=== PATIENT | female | born 1930 | race African-American/Black ===

== ENCOUNTER 2016-10-02 06:00 | Inpatient (IN) ==
--- NOTE | 2016-10-01 18:14 | Internal Med History&Physical ---
Assessment and Plan (1) Diabetes Status: Chronic Current Visit: Yes Qualifiers: Diabetes mellitus type: type 2 Diabetes mellitus complication status: with skin complications Diabetes mellitus complication detail: with other skin ulcer Diabetes mellitus detention insulin use: with detention use Qualified Code(s): E11.622 - Type 2 diabetes mellitus with other skin ulcer; Z79.4 - halfway (current) use of insulin (2) Sacral decubitus ulcer Status: Chronic Current Visit: No Qualifiers: Pressure ulcer stage: unstageable Qualified Code(s): L89.150 - Pressure ulcer of sacral region, unstageable (3) History of stroke Status: Chronic Current Visit: No (4) Diabetic ulcer 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 Lux is a 86 year old female patient of [facility] with history of Stroke with upper extremity contractures, dementia, HTN, chronic constipation, recent sacral area decubitus ulceration with abscess, anemia of chronic illness, bed bound patient, B12 deficiency, Diabetes, who was seen in sn[facility] and acute RLE vascular wound was noted. She was sent to hospital for direct admission and for consulting Dr. Lares to evaluate leg wound for surgical debridement. Home Medications Medication Instructions Recorded Confirmed Type Acetaminophen [Acetaminophen ER 650 mg PO BID 05/08/16 10/02/16 History Tab] Bisacodyl Tab [Dulcolax Tab] 5 mg PO BEDTIME 05/08/16 10/02/16 History Calcium Carbonate/Vitamin D3 1 tablet PO BID 05/08/16 10/02/16 History [Calcium 600 + Vit D Tablet] Cyanocobalamin (Vitamin B-12) 1,000 mcg IJ Q30D 05/08/16 10/02/16 History [Cyanocobalamin Injection] Docusate Sodium Cap [Colace Cap] 100 mg PO BEDTIME 05/08/16 10/02/16 History Multivitamin with Iron 1 each PO 0900 05/08/16 10/02/16 History [Multivitamins with Iron] Omeprazole [Prilosec] 20 mg PO 0900 05/08/16 10/02/16 History Albuterol/Ipratropium Neb [Duoneb] 3 ml RESP TX RT Q6H #120 05/20/16 10/02/16 Rx nebulization solution Insulin Regular [HumuLIN R] See Protocol SUBCUT ACHS injection 05/20/16 Rx Lactulose 20 gm PO TID PRN #30 05/20/16 10/02/16 Rx Metoprolol Tartrate Tab [Lopressor 12.5 mg PO BID #60 tablet 05/20/16 10/02/16 Rx Tab] cloNIDine TAB [Catapres Tab] 0.1 mg PO BID #60 tablet 05/20/16 10/02/16 Rx Aspirin Chew Tab 81 mg PO 0900 09/18/16 10/02/16 History Tramadol HCl [Tramadol Tab] 50 mg PO DAILY PRN 09/18/16 10/02/16 History medroxyPROGESTERone TAB [Provera] 20 mg PO DAILY #30 tablet 09/18/16 10/02/16 Rx Allergies Allergy/AdvReac Type Severity Reaction Status Date / Time No Known Allergies Allergy Verified 05/07/16 19:59 Medical,Surgical,& Family Hx - Medical History Cardio: History of: Hypertension Neurology: History of: Cerebrovascular Accident HEENT: Comment Only: Eye Problem (cataracts) Endocrine: History of: Diabetes Mellitus (IDDM) Genitourinary: History of: Problems (urinary incontinence) Gastrointestinal: History of: GERD Musculoskeletal: History of: Musculoskeletal Problems (contractures upper limbs from stroke; bed bound patient) Hematology: History of: Anemia (chronic disease) Other: History of: Skin Problems (sacral decubitus ulceration and acute RLE vascular skin wound) - Surgical History Additional Surgical History: surgical decubitus ulceration debridement; sacral abscess I&D - Family History Family History: Reports;: Family Hypertension - Social History Smoking Status: Never smoker Frequency of Alcohol Use: None Type of Drug Use: None Marital Status: Lives With:: snf Functional capacity: bed bound ROS unobtainable: due to dementia, other (history obtained at snf; nursing reports) - Constitutional Constitutional: Absent: anorexia (good appetite at snf), excessive sweating, night sweats - Cardiovascular Cardiovascular: Absent: dyspnea - Respiratory Respiratory: Absent: cough - Gastrointestinal Gastrointestinal: Absent: diarrhea, vomiting - Musculoskeletal Musculoskeletal: Present: limited range of motion (bed bound patient with contractures) - Neurological Neurological: Present: other (dementia) Exam - Constitutional General appearance: no acute distress - Head Head exam: Present: normocephalic - Respiratory Respiratory exam: Present: clear to auscultation bilaterally. Absent: rhonchi, wheezes - Cardiovascular Cardiovascular exam: Present: regular rate and rhythm - GI/Abdominal GI/Abdominal exam: Present: normal bowel sounds, soft. Absent: tenderness - Extremities Exam Extremities exam: Absent: edema - Neurological Exam Neurological exam: Present: other (awake but has dementia) - Psychiatric Psychiatric exam: Present: normal mood - Skin Skin exam: Present: warm, dry, other (vascular skin wound lower extremity) Results - Labs CBC & BMP: 10/03/16 04:47 10/02/16 19:25
[~2016-10-02 06:00] MED LIST: ACETAMINOPHEN 325 MG TABLET PO PRN; DEXTROSE 50% 25 GM/50 ML VIAL IV PRN; GLUCAGON 1 MG VIAL IM PRN; MAGNESIUM HYDROXIDE SUSP 30 ML UDCUP PO PRN; ONDANSETRON 4 MG/2 ML VIAL IV PRN; traMADol 50 MG TABLET PO PRN
[2016-10-02] MEDS: DOCUSATE SODIUM 100 MG CAPSULE PO SCH ×3 (11:02→21:10)
[2016-10-02] MEDS: INSULIN REGULAR 100 UNIT/ML SUBCUT SCH ×4 (11:02→21:23)
[2016-10-02] MEDS: SODIUM CHLORIDE 0.45% 1,000 ML IV SCH ×2 (11:02→11:09)
[2016-10-02] MEDS: FAMOTIDINE 20 MG TABLET PO SCH ×3 (11:02→21:09)
[2016-10-02] MEDS: CLINDAMYCIN INJ 600 MG in PREMIX 1 EACH IV SCH ×3 (11:10→21:08)
[2016-10-02] MEDS: ENOXAPARIN 30 MG/0.3 ML SYRINGE SUBCUT SCH ×2 (11:38→17:58)
[2016-10-02] MEDS ORDERED: SKIN HEALING OINT (AQUAPHOR) 50 GM TUBE TOP PRN (14:57)
--- NOTE | 2016-10-02 15:06 | General Surgery Consult Note ---
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 This likely has a component of an atypical pressure associated ulcer as well, as noted by the opposing right and left leg body habitus. We will obtain cultures and begin with offloading, moisturizing the area heavily and using Santyl enzymatic debridement, and look at serially removing devitalized tissue. She may require formal OR debridement as well. Current Visit: Yes (2) Sacral decubitus ulcer Status: Acute Assessment and plan: 10/02/16 Large sacral decubitus ulcer. This appears clean and is granulating but with a modest biofilm present. We will start by Enzymatic debridement but she may require OR debridement of this area in order to remove the biofilm if it does not respond to conservative measures. Current Visit: No Qualifiers: Pressure ulcer stage: unstageable Qualified Code(s): L89.150 - Pressure ulcer of sacral region, unstageable History of Present Illness Chief complaint: 1. Right lower extremity wound; 2. Sacral decubitus ulcer History of present illness: Ms. Lux is a 86 year old female Home Medications Medication Instructions Recorded Confirmed Type Acetaminophen [Acetaminophen ER 650 mg PO BID 05/08/16 10/02/16 History Tab] Bisacodyl Tab [Dulcolax Tab] 5 mg PO BEDTIME 05/08/16 10/02/16 History Calcium Carbonate/Vitamin D3 1 tablet PO BID 05/08/16 10/02/16 History [Calcium 600 + Vit D Tablet] Cyanocobalamin (Vitamin B-12) 1,000 mcg IJ Q30D 05/08/16 10/02/16 History [Cyanocobalamin Injection] Docusate Sodium Cap [Colace Cap] 100 mg PO BEDTIME 05/08/16 10/02/16 History Multivitamin with Iron 1 each PO 00 05/08/16 10/02/16 History [Multivitamins with Iron] Omeprazole [Prilosec] 20 mg PO 0900 05/08/16 10/02/16 History Albuterol/Ipratropium Neb [Duoneb] 3 ml RESP TX RT Q6H #120 05/20/16 10/02/16 Rx nebulization solution Insulin Regular [HumuLIN R] See Protocol SUBCUT ACHS injection 05/20/16 Rx Lactulose 20 gm PO TID PRN #30 05/20/16 10/02/16 Rx Metoprolol Tartrate Tab [Lopressor 12.5 mg PO BID #60 tablet 05/20/16 10/02/16 Rx Tab] cloNIDine TAB [Catapres Tab] 0.1 mg PO BID #60 tablet 05/20/16 10/02/16 Rx Aspirin Chew Tab 81 mg PO 0900 09/18/16 10/02/16 History Tramadol HCl [Tramadol Tab] 50 mg PO DAILY PRN 09/18/16 10/02/16 History medroxyPROGESTERone TAB [Provera] 20 mg PO DAILY #30 tablet 09/18/16 10/02/16 Rx Allergies Allergy/AdvReac Type Severity Reaction Status Date / Time No Known Allergies Allergy Verified 05/07/16 19:59 Medical,Surgical,& Family Hx - Medical History Cardio: History of: Hypertension Neurology: History of: Cerebrovascular Accident HEENT: Comment Only: Eye Problem (cataracts) Renal: Comment Only: Renal Problems (Incontient) Gastrointestinal: History of: GERD Musculoskeletal: History of: Musculoskeletal Problems (contractures upper limbs from stroke; bed bound patient) Hematology: History of: Anemia (chronic disease) Other: History of: Skin Problems (acute sacral decubitus ulceration) - Social History Smoking Status: Unknown if ever smoked ROS unobtainable: due to dementia, other (See SNF record) Exam - Constitutional Vitals: Period Temp Pulse Resp BP Sys/Dugan Pulse Ox Last 24 Hr 99 F 98 17 149/81 99 General appearance: other (Pleasantly demented elderly female who is awake and looks around; she has incoherent speech but appears in no distress. ) - Head Head exam: Present: normocephalic - Neck Neck exam: Absent: lymphadenopathy, tenderness - Respiratory Respiratory exam: Present: rhonchi. Absent: wheezes - Cardiovascular Cardiovascular exam: Present: RRR - GI/Abdominal GI/Abdominal exam: Present: hypoactive bowel sounds - Extremities Exam Extremities exam: Present: other (Severe lower extremity contractures with muscle wasting bilaterally. On the right lower leg, there is an anteriormedial pretibial full thickness skin ulceration present with pale tissue at the base. I see no gross purulence. There is mild slough at the edges and centrally. Additionally, there is some necrotic tissue and soft eschar present at the superior and inferior wound edges, about 1-2cm at each site. Skin edges are not injected or erythematous. It is mildly tender to touch. Pulses are not definitely palpable but there are no gross ischemic changes present. The extremities are evenly colored and warm to touch. ) Quality Measures - VTE Contraindication to Mechanical VTE Prophylaxis: Vascular Ulceration
[2016-10-02] MEDS: COLLAGENASE OINT 30 GM TUBE TOP SCH (15:25)
[2016-10-02] MEDS: SODIUM HYPOCHLORITE 0.25% IRRIG 473 ML BOTTLE TOP SCH (18:39)
--- NOTE | 2016-10-02 18:44 | Internal Med Progress Note ---
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 Status: Acute Current Visit: Yes (3) Diabetes Status: Chronic Current Visit: Yes Qualifiers: Diabetes mellitus type: type 2 Diabetes mellitus complication status: with skin complications Diabetes mellitus complication detail: with other skin ulcer Diabetes mellitus software writer insulin use: with software writer use Qualified Code(s): E11.622 - Type 2 diabetes mellitus with other skin ulcer; Z79.4 - longterm (current) use of insulin (4) History of stroke Status: Chronic Current Visit: No (5) Sacral decubitus ulcer Status: Chronic Current Visit: No Qualifiers: Pressure ulcer stage: unstageable Qualified Code(s): L89.150 - Pressure ulcer of sacral region, unstageable Internal Medicine - PN: Subj Interval history: Ms. Lux is a 86 year old female patient of [facility] with history of Stroke with upper extremity contractures, dementia, HTN, chronic constipation, recent sacral area decubitus ulceration with abscess, anemia of chronic illness, bed bound patient, B12 deficiency, Diabetes, who was seen in [facility] and acute RLE vascular wound was noted. She was sent to hospital for direct admission and for consulting Dr. Lares to evaluate leg wound for surgical debridement. She is stable and wound care underway. Fluids started and she will need blood transfusion, which will help with hypotension. She will also need some albumin for 2-3 days. Will consult long line teamster for protein requirements. Exam (Progress Note) - Constitutional Vitals: Period Temp Pulse Resp BP Sys/Dugan Pulse Ox Last 24 Hr 99 F-99.2 F 98-101 17-18 100-149/57-81 99-100 Exam: - Constitutional General appearance: no acute distress - Respiratory Respiratory exam: Present: clear to auscultation bilaterally. Absent: rhonchi, wheezes - Cardiovascular Cardiovascular exam: Present: regular rate and rhythm - GI/Abdominal GI/Abdominal exam: Present: normal bowel sounds, soft. Absent: tenderness - Extremities Exam Extremities exam: Absent: edema - Neurological Exam Neurological exam: Present: alertness improved - Psychiatric Psychiatric exam: Present: normal mood - Skin Skin exam: Present: warm, dry, other (vascular skin wound lower extremity) Results - Labs CBC & BMP: 10/03/16 04:47 10/02/16 19:25 Quality Measures - VTE Contraindication to Mechanical VTE Prophylaxis: Vascular Ulceration
[2016-10-02] MEDS ORDERED: LACTULOSE 20 GM/30 ML UDCUP PO PRN (18:46)
[2016-10-02] MEDS ORDERED: traMADol 50 MG TABLET PO PRN (18:46)
[2016-10-02 19:40] LABS: Basophils % 0.2 % (0.0-0.8); Eosinophils # 0.1 10*3/uL (0.0-0.87); Eosinophils % 2.2 % (0.00-10.9); Hematocrit 20.3 VOL% (35.7-47.0); Immature Granulocytes % 0.5 %; Immature Granulocytes Absolute 0.03 #; Lymphocytes # 2.4 10*3/uL (1.4-4.0); Lymphocytes % 40.5 % (21.3-54.2); Mean Corpuscular HGB Conc 33.5 GM/DL (32-36); Mean Corpuscular Hemoglobin 29 PG (27-34); Mean Corpuscular Volume 85.7 FL (87-102); Mean Platelet Volume 9.8 FL (9.6-12.0); Monocytes # 0.7 10*3/uL (0.11-0.8); Monocytes % 12.4 % (1.7-12.7); Neutrophils # 2.6 10*3/uL (1.4-7.4); Neutrophils % 44.2 % (38.7-73.9); Platelet Count 319 T/CUMM (130-400); Red Blood Count 2.37 MC/CUMM (3.8-5.5); Red Cell Distribution Width 13.2 % (9.3-17.3); White Blood Count 5.8 T/CUMM (4-12)
[2016-10-02 19:44] LABS: Hemoglobin 6.8 GM/DL (12.0-16.0)
[2016-10-02 20:00] LABS: Alanine Aminotransferase 11 U/L (13-56); Albumin 1.9 G/DL (3.4-5.0); Alkaline Phosphatase 53 U/L (45-117); Aspartate Amino Transferase 17 U/L (0-37); Bilirubin,Total < 0.39 MG/DL (0.2-1.0); Blood Urea Nitrogen 8 MG/DL (7-18); Calcium 8.3 MG/DL (8.5-10.1); Glucose 104 MG/DL (74-106); Osmolality,Calculated 278.3 MOS/KG (273-304); Potassium 4.5 MMOL/L (3.5-5.1); Sodium 141 MMOL/L (136-145); Total Protein 6.2 G/DL (6.4-8.3)
[2016-10-02] MEDS: ACETAMINOPHEN 325 MG TABLET PO SCH (21:09)
[2016-10-02] MEDS: CALCIUM (CARBONATE)/VITAMIN D 600 MG-400 UNIT TABLET PO SCH (21:09)
[2016-10-02] MEDS: BISACODYL 5 MG TABLET PO SCH (21:10)
[2016-10-02] MEDS: METOPROLOL TARTRATE 25 MG TABLET PO SCH (21:27)
[2016-10-03] MEDS: SODIUM CHLORIDE 0.45% 1,000 ML IV SCH ×3 (01:32→20:47)
[2016-10-03 05:17] LABS: Basophils % 0.3 % (0.0-0.8); Eosinophils # 0.1 10*3/uL (0.0-0.87); Eosinophils % 2.4 % (0.00-10.9); Hematocrit 21.8 VOL% (35.7-47.0); Hemoglobin 7.2 GM/DL (12.0-16.0); Immature Granulocytes % 0.3 %; Immature Granulocytes Absolute 0.02 #; Lymphocytes # 2.9 10*3/uL (1.4-4.0); Lymphocytes % 49.3 % (21.3-54.2); Mean Corpuscular Hemoglobin 28 PG (27-34); Mean Corpuscular Volume 85.5 FL (87-102); Mean Platelet Volume 9.9 FL (9.6-12.0); Monocytes # 0.7 10*3/uL (0.11-0.8); Monocytes % 11.1 % (1.7-12.7); Neutrophils # 2.1 10*3/uL (1.4-7.4); Neutrophils % 36.6 % (38.7-73.9); Platelet Count 343 T/CUMM (130-400); Red Blood Count 2.55 MC/CUMM (3.8-5.5); Red Cell Distribution Width 13.4 % (9.3-17.3); White Blood Count 5.9 T/CUMM (4-12)
[2016-10-03 05:46] LABS: Eosinophils 4 % (0-10); Hypochromasia 1+; Lymphocytes 59 % (20-55); Platelet Estimate Normal; Segmented Neutrophils 33 % (50-85); Total Cells Counted 100
[2016-10-03] MEDS: CLINDAMYCIN INJ 600 MG in PREMIX 1 EACH IV SCH ×3 (06:21→20:57)
[2016-10-03] MEDS ORDERED: SODIUM CHLORIDE 0.9% 250 ML IV PRN (07:36)
[2016-10-03] MEDS ORDERED: medroxyPROGESTERone 5 MG TABLET PO SCH (09:00)
[2016-10-03] MEDS: ALBUMIN 25% 25 GM in PREMIX 1 EACH IV SCH ×2 (09:24→17:43)
[2016-10-03] MEDS: INSULIN REGULAR 100 UNIT/ML SUBCUT SCH ×4 (09:29→21:32)
[2016-10-03] MEDS: PANTOPRAZOLE 40 MG TABLET PO SCH (09:30)
[2016-10-03] MEDS: DOCUSATE SODIUM 100 MG CAPSULE PO SCH ×3 (09:30→21:02)
[2016-10-03] MEDS: METOPROLOL TARTRATE 25 MG TABLET PO SCH ×3 (09:31→21:05)
[2016-10-03] MEDS: CALCIUM (CARBONATE)/VITAMIN D 600 MG-400 UNIT TABLET PO SCH ×2 (09:31→21:00)
[2016-10-03] MEDS: MULTIVITAMIN (CENTRUM) TABLET PO SCH (09:31)
[2016-10-03] MEDS: ASPIRIN CHEW 81 MG TABLET PO SCH (09:32)
[2016-10-03] MEDS: FAMOTIDINE 20 MG TABLET PO SCH ×2 (09:33→21:00)
[2016-10-03] MEDS: ACETAMINOPHEN 325 MG TABLET PO SCH ×2 (09:34→22:12)
--- NOTE | 2016-10-03 11:29 | General Surgery Progress Note ---
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 This likely has a component of an atypical pressure associated ulcer as well, as noted by the opposing right and left leg body habitus. We will obtain cultures and begin with offloading, moisturizing the area heavily and using Santyl enzymatic debridement, and look at serially removing devitalized tissue. She may require formal OR debridement as well. 10/03/2016. Ulceration of the right lower leg is somewhat improved with just the Santyl and moisturizing. I believe the enzymatic debridement will likely handle her existing slough, as well as some consistent wound care. Will reassess this on Thursday and determine whether or not she would benefit from any more aggressive debridement, but at this time that does not look to be any advancing infection. Certainly any formal workup of her arterial status would not gain any useful information at this point. Current Visit: Yes (2) Sacral decubitus ulcer Status: Chronic Assessment and plan: 10/02/16 Large sacral decubitus ulcer. This appears clean and is granulating but with a modest biofilm present. We will start by Enzymatic debridement but she may require OR debridement of this area in order to remove the biofilm if it does not respond to conservative measures. 10/03/2016. Sacral decubitus looks to be cleaning up nicely with just Dakin's moist dressing. I think this just with a heavy biofilm, and does not appear to be anything that needs any kind of a large debridement. We will continue this through the and reassess on Thursday. Current Visit: No Qualifiers: Pressure ulcer stage: unstageable Qualified Code(s): L89.150 - Pressure ulcer of sacral region, unstageable Subjective Patient reports: Present: other (Ms. Lux is pleasantly demented. She is conversant today, but is not oriented at all to place) Exam - Constitutional Vitals: Period Temp Pulse Resp BP Sys/Dugan Pulse Ox Last 24 Hr 97.8 F-99.6 F 86-109 18-20 95-146/45-73 96-100 General appearance: no acute distress - Extremities Exam Extremities exam: Present: other (Right anterior tibial wound is a little body cleaner today, with no gross purulence, no erythema, and no unusual tenderness. This left already appears to be less pronounced and is loosening from the edges.) - Back Exam Back exam: Present: other (Sacral wound is clean and it looks as if the biofilm is loosening. I see no new areas of pressure or excoriation.) Results - Labs CBC & BMP: 10/03/16 04:47 10/02/16 19:25 Lab Results: I have reviewed the past 24 hour labs (Hematocrit is 21.8; we will let Dr. Garner address whether or not she would like to transfuse.) Quality Measures - VTE Contraindication to Mechanical VTE Prophylaxis: Vascular Ulceration
[2016-10-03] MEDS: SODIUM HYPOCHLORITE 0.25% IRRIG 473 ML BOTTLE TOP SCH (14:15)
[2016-10-03] MEDS: COLLAGENASE OINT 30 GM TUBE TOP SCH (14:16)
--- NOTE | 2016-10-03 14:41 | Internal Med Progress Note ---
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 Status: Acute Current Visit: Yes (3) Diabetes Status: Chronic Current Visit: Yes Qualifiers: Diabetes mellitus type: type 2 Diabetes mellitus complication status: with skin complications Diabetes mellitus complication detail: with other skin ulcer Diabetes mellitus lamp mechanic insulin use: with lamp mechanic use Qualified Code(s): E11.622 - Type 2 diabetes mellitus with other skin ulcer; Z79.4 - shelter (current) use of insulin (4) History of stroke Status: Chronic Current Visit: No (5) Sacral decubitus ulcer Status: Chronic Current Visit: Yes Qualifiers: Pressure ulcer stage: unstageable Qualified Code(s): L89.150 - Pressure ulcer of sacral region, unstageable Internal Medicine - PN: Subj Interval history: Ms. Lux is a 86 year old female patient of [facility] with history of Stroke with upper extremity contractures, dementia, HTN, chronic constipation, recent sacral area decubitus ulceration with abscess, anemia of chronic illness, bed bound patient, B12 deficiency, Diabetes, who was seen in [facility] and acute RLE vascular wound was noted. She was sent to hospital for direct admission and for consulting Dr. Lares to evaluate leg wound for surgical debridement. She is stable and wound care underway. Fluids started and she will need blood transfusion, which will help with hypotension. She will also need some albumin for 2-3 days. Will consult foxpro developer for protein requirements. She is feeling better after surgical debridement of RLE. Exam (Progress Note) - Constitutional Vitals: Period Temp Pulse Resp BP Sys/Dugan Pulse Ox Last 24 Hr 97.8 F-99.6 F 81-109 18-20 95-146/45-73 96-100 Exam: - Constitutional General appearance: no acute distress - Respiratory Respiratory exam: Present: clear to auscultation bilaterally - Cardiovascular Cardiovascular exam: Present: regular rate and rhythm - GI/Abdominal GI/Abdominal exam: Present: normal bowel sounds, soft. Absent: tenderness - Extremities Exam Extremities exam: Absent: edema - Neurological Exam Neurological exam: Present: alertness improved - Psychiatric Psychiatric exam: Present: normal mood - Skin Skin exam: Present: warm, dry, other (vascular skin wound lower extremity) Results - Labs CBC & BMP: 10/03/16 04:47 10/02/16 19:25 Quality Measures - VTE Contraindication to Mechanical VTE Prophylaxis: Vascular Ulceration
[2016-10-03] MEDS: ENOXAPARIN 30 MG/0.3 ML SYRINGE SUBCUT SCH (17:47)
[2016-10-03] MEDS: BISACODYL 5 MG TABLET PO SCH (21:01)
[2016-10-04] MEDS: ALBUMIN 25% 25 GM in PREMIX 1 EACH IV SCH ×3 (00:57→17:26)
[2016-10-04] MEDS: SODIUM CHLORIDE 0.45% 1,000 ML IV SCH ×2 (06:09→17:44)
[2016-10-04] MEDS: CLINDAMYCIN INJ 600 MG in PREMIX 1 EACH IV SCH ×3 (06:09→21:19)
[2016-10-04 06:30] LABS: Basophils % 0.3 % (0.0-0.8); Eosinophils # 0.1 10*3/uL (0.0-0.87); Eosinophils % 1.8 % (0.00-10.9); Hematocrit 26.3 VOL% (35.7-47.0); Hemoglobin 8.9 GM/DL (12.0-16.0); Immature Granulocytes % 0.3 %; Immature Granulocytes Absolute 0.02 #; Lymphocytes # 2.5 10*3/uL (1.4-4.0); Lymphocytes % 41.8 % (21.3-54.2); Mean Corpuscular HGB Conc 33.8 GM/DL (32-36); Mean Corpuscular Hemoglobin 28 PG (27-34); Mean Corpuscular Volume 83.8 FL (87-102); Mean Platelet Volume 9.8 FL (9.6-12.0); Monocytes # 0.9 10*3/uL (0.11-0.8); Monocytes % 14.3 % (1.7-12.7); Neutrophils # 2.5 10*3/uL (1.4-7.4); Neutrophils % 41.5 % (38.7-73.9); Platelet Count 287 T/CUMM (130-400); Red Blood Count 3.14 MC/CUMM (3.8-5.5); Red Cell Distribution Width 14.1 % (9.3-17.3)
[2016-10-04 07:07] LABS: Albumin 2.9 G/DL (3.4-5.0); Bilirubin,Total 0.9 MG/DL (0.2-1.0); Calcium 8.6 MG/DL (8.5-10.1); Osmolality,Calculated 286.6 MOS/KG (273-304); Potassium 3.8 MMOL/L (3.5-5.1); Total Protein 6.5 G/DL (6.4-8.3)
--- NOTE | 2016-10-04 08:24 | Family Practice Progress Note ---
Family Practice - PN: Subj Interval history: Patient seen. Was resting. No acute distress. Not very responsive. Vital signs are stable temperature 98.9. Her oxygen sats 99%. Hemoglobin hematocrit are 8.926 respectively with normal chemistries and her albumin has come up to 2.9. I will probably hold albumin after tomorrow. Plan recheck lab Thursday Exam (Progress Note) - Constitutional Vitals: Period Temp Pulse Resp BP Sys/Dugan Pulse Ox Last 24 Hr 98.9 F-99.6 F 76-104 18-22 96-134/47-94 96-100 Exam: Generally is resting well no acute distress. Does have dementia. HEENT essentially negative there is no tracheal deviation and neck is supple Cardiovascular rate regular and rhythmic Lungs are clear without any obvious rhonchi rales Abdomen soft nondistended Extremities patient does have vascular wounds which are being treated by surgery. Also has some sacral decubital mild ulcer Disposition is from [facility]. Results - Labs CBC & BMP: 10/04/16 05:43 10/04/16 05:43 Assessment and Plan (1) Protein malnutrition Status: Acute Assessment and plan: 787: We are giving her albumin. 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
[2016-10-04] MEDS: INSULIN REGULAR 100 UNIT/ML SUBCUT SCH ×4 (08:28→20:11)
[2016-10-04] MEDS: ACETAMINOPHEN 325 MG TABLET PO SCH ×2 (09:19→20:09)
[2016-10-04] MEDS: ASPIRIN CHEW 81 MG TABLET PO SCH (09:20)
[2016-10-04] MEDS: PANTOPRAZOLE 40 MG TABLET PO SCH (09:20)
[2016-10-04] MEDS: METOPROLOL TARTRATE 25 MG TABLET PO SCH ×2 (09:20→20:08)
[2016-10-04] MEDS: MULTIVITAMIN (CENTRUM) TABLET PO SCH (09:20)
[2016-10-04] MEDS: CALCIUM (CARBONATE)/VITAMIN D 600 MG-400 UNIT TABLET PO SCH ×2 (09:20→20:08)
[2016-10-04] MEDS: DOCUSATE SODIUM 100 MG CAPSULE PO SCH ×3 (09:20→20:08)
[2016-10-04] MEDS: FAMOTIDINE 20 MG TABLET PO SCH ×2 (09:20→20:09)
[2016-10-04] MEDS: COLLAGENASE OINT 30 GM TUBE TOP SCH (14:16)
[2016-10-04] MEDS: SODIUM HYPOCHLORITE 0.25% IRRIG 473 ML BOTTLE TOP SCH (14:16)
[2016-10-04] MEDS: ENOXAPARIN 30 MG/0.3 ML SYRINGE SUBCUT SCH (17:29)
[2016-10-04] MEDS: BISACODYL 5 MG TABLET PO SCH (20:11)
[2016-10-05] MEDS: ALBUMIN 25% 25 GM in PREMIX 1 EACH IV SCH ×4 (00:27→17:39)
[2016-10-05] MEDS: SODIUM CHLORIDE 0.45% 1,000 ML IV SCH ×2 (05:40→22:57)
[2016-10-05] MEDS: CLINDAMYCIN INJ 600 MG in PREMIX 1 EACH IV SCH ×3 (05:40→21:59)
[2016-10-05 06:34] LABS: Basophils % 0.2 % (0.0-0.8); Eosinophils # 0.2 10*3/uL (0.0-0.87); Eosinophils % 3.3 % (0.00-10.9); Hematocrit 26.7 VOL% (35.7-47.0); Hemoglobin 8.7 GM/DL (12.0-16.0); Immature Granulocytes % 0.2 %; Immature Granulocytes Absolute 0.01 #; Lymphocytes # 2.2 10*3/uL (1.4-4.0); Lymphocytes % 41.1 % (21.3-54.2); Mean Corpuscular HGB Conc 32.6 GM/DL (32-36); Mean Corpuscular Hemoglobin 28 PG (27-34); Mean Corpuscular Volume 84.5 FL (87-102); Mean Platelet Volume 9.9 FL (9.6-12.0); Monocytes # 0.7 10*3/uL (0.11-0.8); Monocytes % 12.9 % (1.7-12.7); Neutrophils # 2.3 10*3/uL (1.4-7.4); Neutrophils % 42.3 % (38.7-73.9); Platelet Count 269 T/CUMM (130-400); Red Blood Count 3.16 MC/CUMM (3.8-5.5); Red Cell Distribution Width 14.3 % (9.3-17.3); White Blood Count 5.4 T/CUMM (4-12)
[2016-10-05 07:06] LABS: Calcium 8.7 MG/DL (8.5-10.1); Magnesium 2.1 MG/DL (1.8-2.4); Osmolality,Calculated 289.6 MOS/KG (273-304); Potassium 3.9 MMOL/L (3.5-5.1)
--- NOTE | 2016-10-05 09:18 | Family Practice Progress Note ---
Family Practice - PN: Subj Interval history: Patient seen. Was resting. No acute distress. Not very responsive. Vital signs are stable temperature 98.9. Her oxygen sats 99%. Hemoglobin hematocrit are 8.926 respectively with normal chemistries and her albumin has come up to 2.9. I will probably hold albumin after tomorrow. Plan recheck lab Thursday Patient was asleep but aroused. She is very difficult to understand. Vital signs are stable and her hemoglobin hematocrit is remained basically unchanged but it is somewhat anemic. Chemistries are good at this time. Will recheck lab in the morning. Wound care per surgery Exam (Progress Note) - Constitutional Vitals: Period Temp Pulse Resp BP Sys/Dugan Pulse Ox Last 24 Hr 98.2 F-99.7 F 62-93 18-20 113-140/55-68 97-100 Exam: Generally is resting well no acute distress. Does have dementia. HEENT essentially negative there is no tracheal deviation and neck is supple Cardiovascular rate regular and rhythmic Lungs are clear without any obvious rhonchi rales Abdomen soft nondistended Extremities patient does have vascular wounds which are being treated by surgery. Monitoring these closely Disposition is from [facility]. Results - Labs CBC & BMP: 10/05/16 05:51 10/05/16 05:51 Assessment and Plan (1) Protein malnutrition Status: Acute Assessment and plan: 787: We are giving her albumin. 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
[2016-10-05] MEDS: MULTIVITAMIN (CENTRUM) TABLET PO SCH (10:07)
[2016-10-05] MEDS: ACETAMINOPHEN 325 MG TABLET PO SCH ×2 (10:07→20:36)
[2016-10-05] MEDS: DOCUSATE SODIUM 100 MG CAPSULE PO SCH ×3 (10:07→20:37)
[2016-10-05] MEDS: CALCIUM (CARBONATE)/VITAMIN D 600 MG-400 UNIT TABLET PO SCH ×2 (10:07→20:36)
[2016-10-05] MEDS: ASPIRIN CHEW 81 MG TABLET PO SCH (10:08)
[2016-10-05] MEDS: FAMOTIDINE 20 MG TABLET PO SCH ×2 (10:08→20:36)
[2016-10-05] MEDS: PANTOPRAZOLE 40 MG TABLET PO SCH (10:08)
[2016-10-05] MEDS: METOPROLOL TARTRATE 25 MG TABLET PO SCH ×2 (10:08→20:37)
[2016-10-05] MEDS: INSULIN REGULAR 100 UNIT/ML SUBCUT SCH ×4 (10:09→23:10)
[2016-10-05] MEDS: COLLAGENASE OINT 30 GM TUBE TOP SCH (10:09)
[2016-10-05] MEDS: SODIUM HYPOCHLORITE 0.25% IRRIG 473 ML BOTTLE TOP SCH (10:09)
[2016-10-05] MEDS: ENOXAPARIN 30 MG/0.3 ML SYRINGE SUBCUT SCH (17:39)
[2016-10-05] MEDS: BISACODYL 5 MG TABLET PO SCH (20:37)
[2016-10-06] MEDS: CLINDAMYCIN INJ 600 MG in PREMIX 1 EACH IV SCH ×3 (05:23→22:11)
[2016-10-06 06:19] LABS: Basophils % 0.2 % (0.0-0.8); Eosinophils # 0.3 10*3/uL (0.0-0.87); Eosinophils % 4.3 % (0.00-10.9); Hematocrit 25.6 VOL% (35.7-47.0); Hemoglobin 8.7 GM/DL (12.0-16.0); Immature Granulocytes % 0.5 %; Immature Granulocytes Absolute 0.03 #; Lymphocytes # 2.1 10*3/uL (1.4-4.0); Lymphocytes % 36.1 % (21.3-54.2); Mean Corpuscular Hemoglobin 29 PG (27-34); Mean Corpuscular Volume 84.2 FL (87-102); Monocytes # 0.7 10*3/uL (0.11-0.8); Monocytes % 11.7 % (1.7-12.7); Neutrophils # 2.8 10*3/uL (1.4-7.4); Neutrophils % 47.2 % (38.7-73.9); Platelet Count 234 T/CUMM (130-400); Red Blood Count 3.04 MC/CUMM (3.8-5.5); Red Cell Distribution Width 14.2 % (9.3-17.3); White Blood Count 5.9 T/CUMM (4-12)
[2016-10-06 06:51] LABS: Albumin 3.8 G/DL (3.4-5.0); Bilirubin,Total 1.2 MG/DL (0.2-1.0); Potassium 3.9 MMOL/L (3.5-5.1); Total Protein 6.7 G/DL (6.4-8.3)
[2016-10-06] MEDS: INSULIN REGULAR 100 UNIT/ML SUBCUT SCH ×4 (07:47→21:40)
--- NOTE | 2016-10-06 09:43 | General Surgery Progress Note ---
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 This likely has a component of an atypical pressure associated ulcer as well, as noted by the opposing right and left leg body habitus. We will obtain cultures and begin with offloading, moisturizing the area heavily and using Santyl enzymatic debridement, and look at serially removing devitalized tissue. She may require formal OR debridement as well. 10/03/2016. Ulceration of the right lower leg is somewhat improved with just the Santyl and moisturizing. I believe the enzymatic debridement will likely handle her existing slough, as well as some consistent wound care. Will reassess this on Thursday and determine whether or not she would benefit from any more aggressive debridement, but at this time that does not look to be any advancing infection. Certainly any formal workup of her arterial status would not gain any useful information at this point. 10/06/2016 right lower extremity ulcer with exposed bone and soft eschar. This area does need some debridement, will plan to take her surgery later today. Current Visit: Yes (2) Sacral decubitus ulcer Status: Chronic Assessment and plan: 10/02/16 Large sacral decubitus ulcer. This appears clean and is granulating but with a modest biofilm present. We will start by Enzymatic debridement but she may require OR debridement of this area in order to remove the biofilm if it does not respond to conservative measures. 10/03/2016. Sacral decubitus looks to be cleaning up nicely with just Dakin's moist dressing. I think this just with a heavy biofilm, and does not appear to be anything that needs any kind of a large debridement. We will continue this through the weekend and reassess on Thursday. 2016. Sacral decubitus ulcer is clean and there is no biofilm. No new pressure changes, and this area appears to be responding well to local care; will continue the present protocol for now. Current Visit: Yes Qualifiers: Pressure ulcer stage: unstageable Qualified Code(s): L89.150 - Pressure ulcer of sacral region, unstageable Subjective Patient reports: Present: other Exam - Constitutional Vitals: Period Temp Pulse Resp BP Sys/Dugan Pulse Ox Last 24 Hr 98.2 F-101.5 F 77-85 18-20 133-150/59-77 96-99 General appearance: no acute distress - Respiratory Respiratory exam: Absent: rales, wheezes - Cardiovascular Cardiovascular exam: Present: RRR - Extremities Exam Extremities exam: Present: other (Right lower extremity with a anterior tibial wound that has some superficial slough which has now declared itself and is loose with a soft eschar superiorly. There is no gross purulence or ischemic change, no erythema, however this slough does need debridement. The base is pink but there is palpable bone at the superior portion.) Results - Labs CBC & BMP: 10/06/16 05:43 10/06/16 05:43 Quality Measures - VTE Contraindication to Mechanical VTE Prophylaxis: Vascular Ulceration
[2016-10-06] MEDS: SODIUM HYPOCHLORITE 0.25% IRRIG 473 ML BOTTLE TOP SCH (09:57)
[2016-10-06] MEDS: DOCUSATE SODIUM 100 MG CAPSULE PO SCH ×3 (09:57→21:25)
[2016-10-06] MEDS: ASPIRIN CHEW 81 MG TABLET PO SCH (09:57)
[2016-10-06] MEDS: MULTIVITAMIN (CENTRUM) TABLET PO SCH (09:57)
[2016-10-06] MEDS: CALCIUM (CARBONATE)/VITAMIN D 600 MG-400 UNIT TABLET PO SCH ×2 (09:57→21:24)
[2016-10-06] MEDS: COLLAGENASE OINT 30 GM TUBE TOP SCH (09:58)
[2016-10-06] MEDS: ACETAMINOPHEN 325 MG TABLET PO SCH ×2 (09:58→21:24)
[2016-10-06] MEDS: FAMOTIDINE 20 MG TABLET PO SCH ×2 (09:58→21:24)
[2016-10-06] MEDS: PANTOPRAZOLE 40 MG TABLET PO SCH (09:58)
[2016-10-06] MEDS: ALBUMIN 25% 25 GM in PREMIX 1 EACH IV SCH ×3 (09:58→18:38)
[2016-10-06] MEDS: METOPROLOL TARTRATE 25 MG TABLET PO SCH ×2 (10:01→21:24)
[2016-10-06] MEDS ORDERED: BUPIVACAINE 0.25% 50 ML VIAL ONE (14:09)
[2016-10-06] MEDS ORDERED: PROPOFOL 200 MG/20 ML VIAL IV ONE (15:20)
[2016-10-06] MEDS ORDERED: LIDOCAINE 2% 5 ML VIAL ONE (15:20)
[2016-10-06] MEDS ORDERED: oxyCODONE/ACETAMINOPHEN 5-325 MG TABLET PO PRN (15:50)
[2016-10-06] MEDS ORDERED: HYDROmorphone 2 MG/1 ML VIAL IV PRN (15:50)
--- NOTE | 2016-10-06 15:50 | Operative Note ---
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 Surgeon Dr. Lares Parking Garage Manager Florence Hidalgo, MANAGER APPLICATION DEVELOPMENT ACNP Anesthesia managed anesthetic care with local Brief history: 86-year-old bedridden after [place] female has been followed at the wound center for sacral ulcer. Now was admitted because she has a new ulcer on the medial aspect of her right leg. It appears that due to contracture of her lower extremities there is pressure between the 2 legs at this point that went unrecognized to the point that she developed breakdown that ulcer. The good bit of necrotic tissue there so we like to bring in get her debrided at this time. Procedure: With patient in the supine position prepped and draped in sterile fashion timeout and antibiotics completed we had to recruit a nurse to actually hold her legs apart and so a good prep and drape cleanly in order to get to this area properly. With her standing and underneath the drapes then we approach this area the ulcer itself. Pre-debridement ulcer is 5.1 x 2.4 x 0.3 cm. At that point I then took a local anesthetic and we infiltrated around the ulcer itself and along the base of the wound in order to be sure we had good pain control. I next took the knife and we did an elliptical incision around the skin edge removing the necrotic skin edge chronic subcutaneous tissue a little bit of tendon and fascia as tissue in this area as well as muscle to debride this wound is cleanly as we could possibly get it. Once it was completely debrided we then use light cauterization control bleeding which was excellent. We then washed irrigated with saline solution. At this point we now have a post debridement wound that is 6 x 3.5 x 0.6 cm. With that completed then we put a bulky dressing on the wrist help control some of the bleeding as well as add some padding protection here. At this point we then were able to take patient to recovery room in stable and satisfactory condition. Estimated blood loss 10 cc Sponge count correct 2 Drains none Complications none Condition stable satisfactory Surgeon / Physician: Turner Lares Results - Labs CBC & BMP: 10/06/16 05:43 10/06/16 05:43 Discharge Plan - Discharge Medications No Action Cyanocobalamin (Vitamin B-12) [Cyanocobalamin Injection] 1,000 mcg IJ Q30D Multivitamin with Iron [Multivitamins with Iron] 1 each PO 0900 Docusate Sodium Cap [Colace Cap] 100 mg PO BEDTIME Metoprolol Tartrate Tab [Lopressor Tab] 12.5 mg PO BID #60 tablet Aspirin Chew Tab 81 mg PO 0900 medroxyPROGESTERone TAB [Provera] 20 mg PO DAILY #30 tablet Calcium Carbonate/Vitamin D3 [Calcium 600 + Vit D Tablet] 1 tablet PO BID Acetaminophen [Acetaminophen ER Tab] 650 mg PO BID Bisacodyl Tab [Dulcolax Tab] 5 mg PO BEDTIME Omeprazole [Prilosec] 20 mg PO 0900 Albuterol/Ipratropium Neb [Duoneb] 3 ml RESP TX RT Q6H #120 nebulization solution Insulin Regular [HumuLIN R] See Protocol SUBCUT ACHS injection cloNIDine TAB [Catapres Tab] 0.1 mg PO BID #60 tablet Lactulose 20 gm PO TID PRN #30 PRN Reason: Constipation Tramadol HCl [Tramadol Tab] 50 mg PO DAILY PRN PRN Reason: C DRESSING CHANGE - Follow Up or Referral - Forms/Instructions
[2016-10-06] MEDS ORDERED: fentaNYL 100 MCG/2 ML VIAL ONE (16:08)
[2016-10-06] MEDS ORDERED: SODIUM CHLORIDE 0.9% 250 ML IV ONE (16:08)
[2016-10-06] MEDS: SODIUM CHLORIDE 0.45% 1,000 ML IV SCH ×3 (16:40→19:50)
--- NOTE | 2016-10-06 17:47 | Anesthesia Post-Op ---
Anesthesia Post OP - Post Ansesthetic Evaluation Patient seen in post op: Yes Resp: within normal limits CV: within normal limits Mental: within normal limits Temp: within normal limits Fiod-Tv-Adjevjnwi: within normal limits Nausea and Vomiting: within normal limits Pain: within normal limits
--- NOTE | 2016-10-06 18:29 | Internal Med Progress Note ---
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 Status: Acute Current Visit: Yes (3) Diabetes Status: Chronic Current Visit: Yes Qualifiers: Diabetes mellitus type: type 2 Diabetes mellitus complication status: with skin complications Diabetes mellitus complication detail: with other skin ulcer Diabetes mellitus detention insulin use: with detention use Qualified Code(s): E11.622 - Type 2 diabetes mellitus with other skin ulcer; Z79.4 - [facility] (current) use of insulin (4) History of stroke Status: Chronic Current Visit: No (5) Sacral decubitus ulcer Status: Chronic Current Visit: Yes Qualifiers: Pressure ulcer stage: unstageable Qualified Code(s): L89.150 - Pressure ulcer of sacral region, unstageable Internal Medicine - PN: Subj Interval history: Ms. Lux is a 86 year old female patient of [facility] with history of Stroke with upper extremity contractures, dementia, HTN, chronic constipation, recent sacral area decubitus ulceration with abscess, anemia of chronic illness, bed bound patient, B12 deficiency, Diabetes, who was seen in custodial and acute RLE vascular wound was noted. She was sent to hospital for direct admission and for consulting Dr. Lares to evaluate leg wound for surgical debridement. She is stable and wound care underway. Fluids started and she will need blood transfusion, which will help with hypotension. She will also need some albumin for 2-3 days. Will consult hot walker for protein requirements. She is feeling better after surgical debridement of RLE. Today, Thursday, she went to OR for more in depth surgical debridement RLE skin wound decubitus ulceration. Stable patient. Exam (Progress Note) - Constitutional Vitals: Period Temp Pulse Resp BP Sys/Dugan Pulse Ox Last 24 Hr 98.1 F-100.3 F 68-85 13-20 111-156/48-77 92-99 Exam: - Constitutional General appearance: no acute distress - Respiratory Respiratory exam: Present: clear to auscultation bilaterally - Cardiovascular Cardiovascular exam: Present: regular rate and rhythm - GI/Abdominal GI/Abdominal exam: Present: normal bowel sounds, soft. Absent: tenderness - Extremities Exam Extremities exam: Absent: edema - Neurological Exam Neurological exam: Present: alertness improved - Psychiatric Psychiatric exam: Present: normal mood - Skin Skin exam: Present: warm, dry, other (vascular skin wound lower extremity) Results - Labs CBC & BMP: 10/06/16 05:43 10/06/16 05:43 Quality Measures - VTE Contraindication to Mechanical VTE Prophylaxis: Vascular Ulceration
[2016-10-06] MEDS ORDERED: SODIUM CHLORIDE 0.9% 250 ML IV PRN (18:31)
[2016-10-06] MEDS: ENOXAPARIN 30 MG/0.3 ML SYRINGE SUBCUT SCH (18:38)
[2016-10-06] MEDS: ceFAZolin 2,000 MG in PREMIX 1 EACH IV SCH (21:24)
[2016-10-06] MEDS: BISACODYL 5 MG TABLET PO SCH (21:24)
[2016-10-07] MEDS: ALBUMIN 25% 25 GM in PREMIX 1 EACH IV SCH ×3 (03:30→17:00)
[2016-10-07] MEDS: ceFAZolin 2,000 MG in PREMIX 1 EACH IV SCH (05:32)
[2016-10-07] MEDS: CLINDAMYCIN INJ 600 MG in PREMIX 1 EACH IV SCH ×3 (06:09→21:32)
[2016-10-07 06:54] LABS: Basophils % 0.2 % (0.0-0.8); Eosinophils # 0.2 10*3/uL (0.0-0.87); Eosinophils % 3.2 % (0.00-10.9); Hematocrit 28.7 VOL% (35.7-47.0); Hemoglobin 9.8 GM/DL (12.0-16.0); Immature Granulocytes % 0.4 %; Immature Granulocytes Absolute 0.02 #; Lymphocytes # 1.8 10*3/uL (1.4-4.0); Lymphocytes % 32.6 % (21.3-54.2); Mean Corpuscular HGB Conc 34.1 GM/DL (32-36); Mean Corpuscular Hemoglobin 29 PG (27-34); Mean Corpuscular Volume 84.4 FL (87-102); Monocytes # 0.7 10*3/uL (0.11-0.8); Monocytes % 13.4 % (1.7-12.7); Neutrophils # 2.7 10*3/uL (1.4-7.4); Neutrophils % 50.2 % (38.7-73.9); Platelet Count 201 T/CUMM (130-400); White Blood Count 5.4 T/CUMM (4-12)
[2016-10-07 07:33] LABS: Albumin 3.7 G/DL (3.4-5.0); Bilirubin,Total 0.7 MG/DL (0.2-1.0); Calcium 8.7 MG/DL (8.5-10.1); Osmolality,Calculated 285.7 MOS/KG (273-304); Potassium 3.7 MMOL/L (3.5-5.1)
[2016-10-07] MEDS: INSULIN REGULAR 100 UNIT/ML SUBCUT SCH ×4 (07:55→21:26)
--- NOTE | 2016-10-07 09:17 | General Surgery Progress Note ---
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 This likely has a component of an atypical pressure associated ulcer as well, as noted by the opposing right and left leg body habitus. We will obtain cultures and begin with offloading, moisturizing the area heavily and using Santyl enzymatic debridement, and look at serially removing devitalized tissue. She may require formal OR debridement as well. 10/03/2016. Ulceration of the right lower leg is somewhat improved with just the Santyl and moisturizing. I believe the enzymatic debridement will likely handle her existing slough, as well as some consistent wound care. Will reassess this on Thursday and determine whether or not she would benefit from any more aggressive debridement, but at this time that does not look to be any advancing infection. Certainly any formal workup of her arterial status would not gain any useful information at this point. 10/06/2016 right lower extremity ulcer with exposed bone and soft eschar. This area does need some debridement, will plan to take her surgery later today. 10/03/2016. Stable postop debridement of right lower extremity. We have taken deep tissue cultures and initiated local care. When she is stable medically this care can be continued at the skilled nursing both on the lower extremity and on the sacral area. Current Visit: Yes (2) Sacral decubitus ulcer Status: Chronic Assessment and plan: 10/02/16 Large sacral decubitus ulcer. This appears clean and is granulating but with a modest biofilm present. We will start by Enzymatic debridement but she may require OR debridement of this area in order to remove the biofilm if it does not respond to conservative measures. 10/03/2016. Sacral decubitus looks to be cleaning up nicely with just Dakin's moist dressing. I think this just with a heavy biofilm, and does not appear to be anything that needs any kind of a large debridement. We will continue this through the weekend and reassess on Thursday. 2016. Sacral decubitus ulcer is clean and there is no biofilm. No new pressure changes, and this area appears to be responding well to local care; will continue the present protocol for now. Current Visit: Yes Qualifiers: Pressure ulcer stage: unstageable Qualified Code(s): L89.150 - Pressure ulcer of sacral region, unstageable Subjective Patient reports: Present: other (Patient received sleeping; she arouses and is pleasantly demented, denies pain) Exam - Constitutional Vitals: Period Temp Pulse Resp BP Sys/Dugan Pulse Ox Last 24 Hr 97.8 F-100.3 F 62-93 13-20 111-159/48-88 92-100 General appearance: no acute distress - Respiratory Respiratory exam: Absent: wheezes - Extremities Exam Extremities exam: Present: other (No bleeding postop dressings.) - Back Exam Back exam: Present: other (Sacral area is clean and dry.) Results - Labs CBC & BMP: 10/07/16 06:47 10/07/16 06:47 Lab Results: I have reviewed the past 24 hour labs (Postop labs are stable; she has been transfused and supported with fluids overnight.) Quality Measures - VTE Contraindication to Mechanical VTE Prophylaxis: Vascular Ulceration
[2016-10-07] MEDS: PANTOPRAZOLE 40 MG TABLET PO SCH (10:04)
[2016-10-07] MEDS: ACETAMINOPHEN 325 MG TABLET PO SCH ×2 (10:04→21:26)
[2016-10-07] MEDS: CALCIUM (CARBONATE)/VITAMIN D 600 MG-400 UNIT TABLET PO SCH ×2 (10:04→21:34)
[2016-10-07] MEDS: MULTIVITAMIN (CENTRUM) TABLET PO SCH (10:04)
[2016-10-07] MEDS: METOPROLOL TARTRATE 25 MG TABLET PO SCH ×2 (10:04→21:34)
[2016-10-07] MEDS: DOCUSATE SODIUM 100 MG CAPSULE PO SCH ×3 (10:05→21:35)
[2016-10-07] MEDS: ASPIRIN CHEW 81 MG TABLET PO SCH (10:05)
[2016-10-07] MEDS: FAMOTIDINE 20 MG TABLET PO SCH ×2 (10:05→21:34)
[2016-10-07] MEDS: SODIUM HYPOCHLORITE 0.25% IRRIG 473 ML BOTTLE TOP SCH (10:05)
[2016-10-07] MEDS: COLLAGENASE OINT 30 GM TUBE TOP SCH (10:06)
[2016-10-07] MEDS: medroxyPROGESTERone 5 MG TABLET PO SCH (14:58)
[2016-10-07] MEDS: SODIUM CHLORIDE 0.45% 1,000 ML IV SCH (18:08)
[2016-10-07] MEDS: ENOXAPARIN 30 MG/0.3 ML SYRINGE SUBCUT SCH (18:09)
[2016-10-07] MEDS: BISACODYL 5 MG TABLET PO SCH (21:34)
--- NOTE | 2016-10-07 21:54 | Internal Med Progress Note ---
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 Status: Acute Current Visit: Yes (3) Diabetes Status: Chronic Current Visit: Yes Qualifiers: Diabetes mellitus type: type 2 Diabetes mellitus complication status: with skin complications Diabetes mellitus complication detail: with other skin ulcer Diabetes mellitus snf insulin use: with snf use Qualified Code(s): E11.622 - Type 2 diabetes mellitus with other skin ulcer; Z79.4 - [facility] (current) use of insulin (4) History of stroke Status: Chronic Current Visit: No (5) Sacral decubitus ulcer Status: Chronic Current Visit: Yes Qualifiers: Pressure ulcer stage: unstageable Qualified Code(s): L89.150 - Pressure ulcer of sacral region, unstageable Internal Medicine - PN: Subj Interval history: Ms. Lux is a 86 year old female patient of [facility] with history of Stroke with upper extremity contractures, dementia, HTN, chronic constipation, recent sacral area decubitus ulceration with abscess, anemia of chronic illness, bed bound patient, B12 deficiency, Diabetes, who was seen in long term and acute RLE vascular wound was noted. She was sent to hospital for direct admission and for consulting Dr. Lares to evaluate leg wound for surgical debridement. She is stable and wound care underway. Fluids started and she will need blood transfusion, which will help with hypotension. She will also need some albumin for 2-3 days. Will consult editor managing newspaper for protein requirements. She is feeling better after surgical debridement of RLE. Today, Thursday, she went to OR for more in depth surgical debridement RLE skin wound decubitus ulceration. Stable patient. Doing better, and wound care continuing per Dr. Lares. Exam (Progress Note) - Constitutional Vitals: Period Temp Pulse Resp BP Sys/Dugan Pulse Ox Last 24 Hr 97.8 F-100.0 F 62-87 18-20 103-159/52-87 92-100 Exam: - Constitutional General appearance: no acute distress - Respiratory Respiratory exam: Present: clear to auscultation bilaterally - Cardiovascular Cardiovascular exam: Present: regular rate and rhythm - GI/Abdominal GI/Abdominal exam: Present: normal bowel sounds, soft - Extremities Exam Extremities exam: Absent: edema - Neurological Exam Neurological exam: Present: alertness improved - Psychiatric Psychiatric exam: Present: normal mood - Skin Skin exam: Present: warm, dry, other (vascular skin wound lower extremity) Results - Labs CBC & BMP: 10/07/16 06:47 10/07/16 06:47 Quality Measures - VTE Contraindication to Mechanical VTE Prophylaxis: Vascular Ulceration
[2016-10-08] MEDS: CLINDAMYCIN INJ 600 MG in PREMIX 1 EACH IV SCH ×3 (06:56→21:55)
[2016-10-08] MEDS: INSULIN REGULAR 100 UNIT/ML SUBCUT SCH ×4 (08:35→21:54)
[2016-10-08] MEDS: CALCIUM (CARBONATE)/VITAMIN D 600 MG-400 UNIT TABLET PO SCH ×2 (09:29→21:54)
[2016-10-08] MEDS: PANTOPRAZOLE 40 MG TABLET PO SCH (09:29)
[2016-10-08] MEDS: METOPROLOL TARTRATE 25 MG TABLET PO SCH ×2 (09:30→21:54)
[2016-10-08] MEDS: ACETAMINOPHEN 325 MG TABLET PO SCH ×2 (09:30→21:54)
[2016-10-08] MEDS: FAMOTIDINE 20 MG TABLET PO SCH ×2 (09:30→21:54)
[2016-10-08] MEDS: MULTIVITAMIN (CENTRUM) TABLET PO SCH (09:30)
[2016-10-08] MEDS: ASPIRIN CHEW 81 MG TABLET PO SCH (09:30)
[2016-10-08] MEDS: DOCUSATE SODIUM 100 MG CAPSULE PO SCH ×2 (09:31→21:54)
[2016-10-08] MEDS: medroxyPROGESTERone 5 MG TABLET PO SCH (09:31)
[2016-10-08] MEDS: SODIUM HYPOCHLORITE 0.25% IRRIG 473 ML BOTTLE TOP SCH (09:31)
[2016-10-08] MEDS: COLLAGENASE OINT 30 GM TUBE TOP SCH (09:32)
[2016-10-08] MEDS: SODIUM CHLORIDE 0.45% 1,000 ML IV SCH ×2 (11:17→13:43)
--- NOTE | 2016-10-08 12:54 | General Surgery Progress Note ---
Assessment and Plan - Time spent with patient Time spent with patient: Less than 30 minutes (1) Sacral decubitus ulcer Status: Chronic Assessment and plan: Sacral decubitus ulcer stage IV continues to show good signs of healing it is flat a good granulating base no sign of any necrotic tissue present. 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 The wound is clean no further necrotic tissue is seen at this time. Cultures are back think we could send her home on Augmentin if we wanted to and follow-up in the wound center any time. Current Visit: Yes Subjective Patient reports: Present: no new complaints, pain is less, tolerating a regular diet, afebrile Exam - Constitutional Vitals: Period Temp Pulse Resp BP Sys/Dugan Pulse Ox Last 24 Hr 96.7 F-99.1 F 69-87 18-20 103-140/56-76 96-100 General appearance: mild distress - Head Head exam: Present: normal inspection - ENT ENT exam: Present: normal exam - Neck Neck exam: Present: normal inspection - Respiratory Respiratory exam: Present: rales, rhonchi - Cardiovascular Cardiovascular exam: Present: RRR - GI/Abdominal GI/Abdominal exam: Present: hypoactive bowel sounds, soft - Extremities Exam Extremities exam: Present: other (Wound on the right leg is fairly clean at this point time with no further necrotic tissue seen. Cultures are back) - Back Exam Back exam: Present: normal inspection, other (Sacral ulcer remains clean with no sign of any necrotic tissue present seems to be progressing continue to heal nicely) - Neurological Exam Neurological exam: Present: alert, oriented X3, CN II-XII intact - Skin Skin exam: Present: normal color Results - Labs CBC & BMP: 10/07/16 06:47 10/07/16 06:47 Lab Results: I have reviewed the past 24 hour labs Quality Measures - VTE Contraindication to Mechanical VTE Prophylaxis: Vascular Ulceration
[2016-10-08] MEDS: AMOXICILLIN/CLAV 500 MG TABLET PO SCH ×2 (13:43→21:54)
[2016-10-08] MEDS: ENOXAPARIN 30 MG/0.3 ML SYRINGE SUBCUT SCH (17:41)
--- NOTE | 2016-10-08 18:42 | Internal Med Progress Note ---
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 Status: Acute Current Visit: Yes (3) Diabetes Status: Chronic Current Visit: Yes Qualifiers: Diabetes mellitus type: type 2 Diabetes mellitus complication status: with skin complications Diabetes mellitus complication detail: with other skin ulcer Diabetes mellitus senior care insulin use: with senior care use Qualified Code(s): E11.622 - Type 2 diabetes mellitus with other skin ulcer; Z79.4 - [facility]-way (current) use of insulin (4) History of stroke Status: Chronic Current Visit: No (5) Sacral decubitus ulcer Status: Chronic Current Visit: Yes Qualifiers: Pressure ulcer stage: unstageable Qualified Code(s): L89.150 - Pressure ulcer of sacral region, unstageable Internal Medicine - PN: Subj Interval history: Ms. Lux is a 86 year old female patient of [facility] with history of Stroke with upper extremity contractures, dementia, HTN, chronic constipation, recent sacral area decubitus ulceration with abscess, anemia of chronic illness, bed bound patient, B12 deficiency, Diabetes, who was seen in [place] [facility] and acute RLE vascular wound was noted. She was sent to hospital for direct admission and for consulting Dr. Lares to evaluate leg wound for surgical debridement. She is stable and wound care underway. Fluids started and she will need blood transfusion, which will help with hypotension. She will also need some albumin for 2-3 days. Will consult chief librarian music department for protein requirements. She has had more debridement of RLE wound and wound care continuing per Dr. Lares. Exam (Progress Note) - Constitutional Vitals: Period Temp Pulse Resp BP Sys/Dugan Pulse Ox Last 24 Hr 96.7 F-99.1 F 69-87 18-20 97-140/49-76 97-100 Exam: - Constitutional General appearance: no acute distress - Respiratory Respiratory exam: Present: clear to auscultation bilaterally - Cardiovascular Cardiovascular exam: Present: regular rate and rhythm - GI/Abdominal GI/Abdominal exam: Present: normal bowel sounds, soft - Extremities Exam Extremities exam: Absent: edema - Neurological Exam Neurological exam: Present: alertness improved - Psychiatric Psychiatric exam: Present: normal mood - Skin Skin exam: Present: warm, dry, other (vascular skin wound lower extremity) Results - Labs CBC & BMP: 10/07/16 06:47 10/07/16 06:47 Quality Measures - VTE Contraindication to Mechanical VTE Prophylaxis: Vascular Ulceration
[2016-10-08] MEDS: BISACODYL 5 MG TABLET PO SCH (21:54)
[2016-10-09] MEDS: DOCUSATE SODIUM 100 MG CAPSULE PO SCH ×4 (00:14→21:18)
[2016-10-09] MEDS: CLINDAMYCIN INJ 600 MG in PREMIX 1 EACH IV SCH ×3 (05:14→21:15)
[2016-10-09] MEDS: AMOXICILLIN/CLAV 500 MG TABLET PO SCH ×3 (05:15→21:17)
--- NOTE | 2016-10-09 09:00 | General Surgery Progress Note ---
Assessment and Plan (1) Sacral decubitus ulcer Status: Chronic Assessment and plan: Sacral decubitus ulcer stage IV continues to show good signs of healing it is flat a good granulating base no sign of any necrotic tissue present. 10/09/2016 Ulcer remains stable and clean at this point and just continued wound care is all is needed at this time. I can follow up in the wound center in about 3 weeks. 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 The wound is clean no further necrotic tissue is seen at this time. Cultures are back think we could send her home on Augmentin if we wanted to and follow-up in the wound center any time. 10/09/2016 Wound on the leg is clean and cultures are finally back and she could probably be treated with Augmentin for another 10 days to cover this area. Most keep some sort of foam pad between the legs in order to prevent other pressure changes from occurring. Continue care and will follow him up in the wound center in about 3 weeks. Current Visit: Yes Subjective Patient reports: Present: no new complaints, afebrile Exam - Constitutional Vitals: Period Temp Pulse Resp BP Sys/Dugan Pulse Ox Last 24 Hr 97.8 F-99.2 F 74-88 18-20 97-139/49-79 97-100 General appearance: mild distress - Extremities Exam Extremities exam: Present: other (Wound is clean and dry without necrotic tissue present.) - Back Exam Back exam: Present: other (Sacral wound is clean with no necrotic tissue and is flat with good granulating base) - Skin Skin exam: Present: normal color, warm, dry Results - Labs CBC & BMP: 10/07/16 06:47 10/07/16 06:47 Lab Results: I have reviewed the past 24 hour labs Quality Measures - VTE Contraindication to Mechanical VTE Prophylaxis: Vascular Ulceration
[2016-10-09] MEDS: medroxyPROGESTERone 5 MG TABLET PO SCH (09:39)
[2016-10-09] MEDS: METOPROLOL TARTRATE 25 MG TABLET PO SCH ×2 (09:40→21:17)
[2016-10-09] MEDS: ASPIRIN CHEW 81 MG TABLET PO SCH (09:40)
[2016-10-09] MEDS: CALCIUM (CARBONATE)/VITAMIN D 600 MG-400 UNIT TABLET PO SCH ×2 (09:40→21:17)
[2016-10-09] MEDS: ACETAMINOPHEN 325 MG TABLET PO SCH ×2 (09:40→21:17)
[2016-10-09] MEDS: PANTOPRAZOLE 40 MG TABLET PO SCH (09:40)
[2016-10-09] MEDS: MULTIVITAMIN (CENTRUM) TABLET PO SCH (09:40)
[2016-10-09] MEDS: INSULIN REGULAR 100 UNIT/ML SUBCUT SCH ×4 (09:41→21:18)
[2016-10-09] MEDS: FAMOTIDINE 20 MG TABLET PO SCH ×2 (10:11→21:17)
[2016-10-09] MEDS: SODIUM CHLORIDE 0.45% 1,000 ML IV SCH (11:43)
[2016-10-09] MEDS: COLLAGENASE OINT 30 GM TUBE TOP SCH (11:44)
[2016-10-09] MEDS: SODIUM HYPOCHLORITE 0.25% IRRIG 473 ML BOTTLE TOP SCH (11:44)
[2016-10-09] MEDS ORDERED: ENOXAPARIN 40 MG/0.4 ML SYRINGE SUBCUT SCH (18:30)
[2016-10-09] MEDS: BISACODYL 5 MG TABLET PO SCH (21:17)
--- NOTE | 2016-10-09 22:09 | Internal Med Progress Note ---
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 Status: Acute Current Visit: Yes (3) Diabetes Status: Chronic Current Visit: Yes Qualifiers: Diabetes mellitus type: type 2 Diabetes mellitus complication status: with skin complications Diabetes mellitus complication detail: with other skin ulcer Diabetes mellitus senior care insulin use: with senior care use Qualified Code(s): E11.622 - Type 2 diabetes mellitus with other skin ulcer; Z79.4 - alf (current) use of insulin (4) History of stroke Status: Chronic Current Visit: No (5) Sacral decubitus ulcer Status: Chronic Current Visit: Yes Qualifiers: Pressure ulcer stage: unstageable Qualified Code(s): L89.150 - Pressure ulcer of sacral region, unstageable Internal Medicine - PN: Subj Interval history: Ms. Lux is a 86 year old female patient of [facility] [place] with history of Stroke with upper extremity contractures, dementia, HTN, chronic constipation, recent sacral area decubitus ulceration with abscess, anemia of chronic illness, bed bound patient, B12 deficiency, Diabetes, who was seen in [facility] and acute RLE vascular wound was noted. She was sent to hospital for direct admission and for consulting Dr. Lares to evaluate leg wound for surgical debridement. She is stable and wound care underway. Fluids started and she will need blood transfusion, which will help with hypotension. She will also need some albumin for 2-3 days. Will consult general merchandise manager for protein requirements. She has had more debridement of RLE wound and wound care continuing per Dr. Lares. She continues to improve. She can be discharged tomorrow back to [facility] where wound care will continue. Exam (Progress Note) - Constitutional Vitals: Period Temp Pulse Resp BP Sys/Dugan Pulse Ox Last 24 Hr 96.0 F-99.4 F 74-83 16-20 112-132/51-65 92-99 Exam: - Constitutional General appearance: no acute distress - Respiratory Respiratory exam: Present: clear to auscultation bilaterally - Cardiovascular Cardiovascular exam: Present: regular rate and rhythm - GI/Abdominal GI/Abdominal exam: Present: normal bowel sounds, soft - Extremities Exam Extremities exam: Absent: edema - Neurological Exam Neurological exam: Present: alert - Psychiatric Psychiatric exam: Present: normal mood - Skin Skin exam: Present: warm, dry, other (vascular skin wound lower extremity) Results - Labs CBC & BMP: 10/07/16 06:47 10/07/16 06:47 Quality Measures - VTE Contraindication to Mechanical VTE Prophylaxis: Vascular Ulceration
--- NOTE | 2016-10-09 22:09 | Discharge Summary ---
Hospital Course - Hospital Course Hospital Course: Ms. Lux is a 86 year old female patient of [facility] with history of Stroke with upper extremity contractures, dementia, HTN, chronic constipation, recent sacral area decubitus ulceration with abscess, anemia of chronic illness, bed bound patient, B12 deficiency, Diabetes, who was seen in [facility] and acute RLE vascular wound was noted. She was sent to hospital for direct admission and for consulting Dr. Lares to evaluate leg wound. She had surgical debridement RLE. Wound care will continue at the [facility]. 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 Status: Acute (3) Diabetes Status: Chronic (4) History of stroke Status: Chronic (5) Sacral decubitus ulcer Status: Chronic (6) Protein malnutrition Status: Chronic Discharge Plan - Discharge Data Disposition: Disch/Xfer to Snf Condition at Discharge: Stable Discharge Diet: regular diet Weight Bearing at Discharge: other (a cushion or other support between knees at all times; lower leg waffle boots used in hospital) - Discharge Medications New Amoxicillin/Clav Tab [Augmentin Tab] 500 mg PO Q8H tablet Collagenase Oint [Santyl Oint] 1 applic TOP DAILY applic Magnesium Hydroxide Susp [Milk of Magnesia] 30 ml PO DAILY PRN PRN Reason: Constipation Skin Healing Oint (Aquaphor) [Aquaphor] 1 applic TOP PRN PRN applic PRN Reason: Dry Skin Sodium Hypochlorite 0.25% Irr [Dakins 1/2 Strength 0.25% Soln] 1 applic TOP DAILY applic Famotidine Tab [Pepcid Tab] 20 mg PO BID tablet traMADol TAB [Ultram] 50 mg PO Q4H PRN tablet PRN Reason: Pain Mild (1-3) Continue Cyanocobalamin (Vitamin B-12) [Cyanocobalamin Injection] 1,000 mcg IJ Q30D Multivitamin with Iron [Multivitamins with Iron] 1 each PO 0900 Docusate Sodium Cap [Colace Cap] 100 mg PO BEDTIME Metoprolol Tartrate Tab [Lopressor Tab] 12.5 mg PO BID #60 tablet Aspirin Chew Tab 81 mg PO 0900 medroxyPROGESTERone TAB [Provera] 20 mg PO DAILY #30 tablet Calcium Carbonate/Vitamin D3 [Calcium 600 + Vit D Tablet] 1 tablet PO BID Acetaminophen [Acetaminophen ER Tab] 650 mg PO BID Bisacodyl Tab [Dulcolax Tab] 5 mg PO BEDTIME Albuterol/Ipratropium Neb [Duoneb] 3 ml RESP TX RT Q6H #120 nebulization solution Insulin Regular [HumuLIN R] See Protocol SUBCUT ACHS injection Lactulose 20 gm PO TID PRN #30 PRN Reason: Constipation Tramadol HCl [Tramadol Tab] 50 mg PO DAILY PRN PRN Reason: C DRESSING CHANGE Discontinued Omeprazole [Prilosec] 20 mg PO 0900 cloNIDine TAB [Catapres Tab] 0.1 mg PO BID #60 tablet - Follow Up or Referral - Forms/Instructions Additional Discharge Instructions: Wound care orders per Dr. Lares. Exam - Constitutional Vitals: Period Temp Pulse Resp BP Sys/Dugan Pulse Ox Last 24 Hr 96.0 F-99.4 F 74-83 16-20 112-132/51-65 92-99 Exam: - Constitutional General appearance: no acute distress - Respiratory Respiratory exam: Present: clear to auscultation bilaterally - Cardiovascular Cardiovascular exam: Present: regular rate and rhythm - GI/Abdominal GI/Abdominal exam: Present: normal bowel sounds, soft - Extremities Exam Extremities exam: Absent: edema - Neurological Exam Neurological exam: Present: alert - Psychiatric Psychiatric exam: Present: normal mood - Skin Skin exam: Present: warm, dry, other (vascular skin wound lower extremity) Discharge Results Procedures and tests throughout hospitalization: Pending Orders 10/06/16 Tissue (Biopsy) Culture and GS Routine Labs on day of discharge: Labs from last 24 hours 10/09/16 10/09/16 10/09/16 20:21 15:15 10:50 POC Glucose 144 H 137 H 126 H 10/09/1617 07:17 19:51 POC Glucose 119 H 168 H Preliminary micro results at discharge 10/06/16 Unknown Tissue Culture - Preliminary Ulcer - Right Proteus mirabilis Gram Positive Cocci DS: Provider Date of admission: 10/02/16 09:36 Primary care physician: Loretta Garner DO Attending physician on admission: Loretta Garner DO Consults: 10/01/16 18:27 Consult to Physician [CONS] Routine Comment: new wound RLE Consulting Provider: Turner Lares Person Notified: Dr. Lares Date Notified: 10/02/16 Time Notified: 10:22 10/02/16 11:13 Consult to Dietitian [CONS] Routine Reason for Dietitian: Other 10/03/16 08:28 Consult to Dietitian [CONS] Routine Reason for Dietitian: Diet Recommendations Consult Comment: protein requirements 10/06/16 09:39 Consult to Anesthesiology [CONS] Routine Consulting Provider: Reason for Anesthesiology: Pre-op Clearance 10/06/16 15:50 Consult to Wound Care - [place] [CONS] Routine Reason for Wound Care: Wound Care Management Consult Comment: sacral and leg wound Discharging clinician: Loretta Garner DO Expected date of discharge: 10/10/16
[2016-10-10] MEDS: CLINDAMYCIN INJ 600 MG in PREMIX 1 EACH IV SCH ×2 (05:06→15:09)
[2016-10-10] MEDS: AMOXICILLIN/CLAV 500 MG TABLET PO SCH ×2 (05:07→15:09)
[2016-10-10] MEDS: INSULIN REGULAR 100 UNIT/ML SUBCUT SCH ×3 (08:41→16:42)
[2016-10-10] MEDS: DOCUSATE SODIUM 100 MG CAPSULE PO SCH (08:42)
[2016-10-10] MEDS: MULTIVITAMIN (CENTRUM) TABLET PO SCH (08:42)
[2016-10-10] MEDS: CALCIUM (CARBONATE)/VITAMIN D 600 MG-400 UNIT TABLET PO SCH (08:42)
[2016-10-10] MEDS: PANTOPRAZOLE 40 MG TABLET PO SCH (08:43)
[2016-10-10] MEDS: FAMOTIDINE 20 MG TABLET PO SCH (08:43)
[2016-10-10] MEDS: medroxyPROGESTERone 5 MG TABLET PO SCH (08:43)
[2016-10-10] MEDS: METOPROLOL TARTRATE 25 MG TABLET PO SCH (08:43)
[2016-10-10] MEDS: ASPIRIN CHEW 81 MG TABLET PO SCH (08:44)
[2016-10-10] MEDS: SODIUM HYPOCHLORITE 0.25% IRRIG 473 ML BOTTLE TOP SCH (08:46)
[2016-10-10] MEDS: COLLAGENASE OINT 30 GM TUBE TOP SCH (08:47)
[2016-10-10] MEDS: ACETAMINOPHEN 325 MG TABLET PO SCH (12:56)
--- NOTE | 2016-10-10 13:05 | General Surgery Progress Note ---
Assessment and Plan (1) Sacral decubitus ulcer Status: Chronic Assessment and plan: Sacral decubitus ulcer stage IV continues to show good signs of healing it is flat a good granulating base no sign of any necrotic tissue present. 10/09/2016 Ulcer remains stable and clean at this point and just continued wound care is all is needed at this time. I can follow up in the wound center in about 3 weeks. 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 The wound is clean no further necrotic tissue is seen at this time. Cultures are back think we could send her home on Augmentin if we wanted to and follow-up in the wound center any time. 10/09/2016 Wound on the leg is clean and cultures are finally back and she could probably be treated with Augmentin for another 10 days to cover this area. Most keep some sort of foam pad between the legs in order to prevent other pressure changes from occurring. Continue care and will follow him up in the wound center in about 3 weeks. 10/10/2016 Wound continues to do well we got to keep pressure off of it as much as we can keep it padded between her legs. Cultures are back and I think she can be on some oral antibiotics for about 10 more days to see if she is going to do well. We will plan to follow her up in the wound center in about 3 weeks. Would consider continuing present wound care Current Visit: Yes Subjective Patient reports: Present: no new complaints, afebrile Exam - Constitutional Vitals: Period Temp Pulse Resp BP Sys/Dugan Pulse Ox Last 24 Hr 96.0 F-98.6 F 76-84 16-22 118-137/51-62 92-99 General appearance: mild distress - Head Head exam: Present: normal inspection - Neck Neck exam: Present: normal inspection - Respiratory Respiratory exam: Present: rales - Cardiovascular Cardiovascular exam: Present: RRR - GI/Abdominal GI/Abdominal exam: Present: hypoactive bowel sounds, soft - Extremities Exam Extremities exam: Present: other (Wound on the leg is fairly clean with no necrotic tissue seen at this time.) - Back Exam Back exam: Present: other (Sacral ulcer remains clean with good flat granulating base) - Skin Skin exam: Present: normal color, warm, dry Results - Labs CBC & BMP: 10/07/16 06:47 10/07/16 06:47 Lab Results: I have reviewed the past 24 hour labs Quality Measures - VTE Contraindication to Mechanical VTE Prophylaxis: Vascular Ulceration Specialty Discharge - Follow Up or Referrals
[2016-10-10] MEDS: SODIUM CHLORIDE 0.45% 1,000 ML IV SCH (15:09)
[2016-10-10 15:37] VITALS: BP 130/57
== END 2016-10-10 16:48 | DRG 579 ==
LOC: N.5E 09:36
PROVIDERS: ADMIT Internal Medicine; ATTEND Internal Medicine